=== PATIENT | male | born 1955 | race Caucasian/White ===

== ENCOUNTER 2024-03-08 06:45 | Day surgery (SDC) | payer MEDICARE, OTHER, SELFPAY ==
[2024-02-18 11:04] VITALS: BMI 32.9
--- NOTE | 2024-03-08 07:17 | WPDANESEPPF ---
Anes - Initial Pre Proc Eval Procedure: Operation Date: 03/08/24 08:30 Proposed Procedures p Diagnostic Colonoscopy - Himanshu Winter MD Date/Time: 03/08/24 07:17 Surgeon: Himanshu Winter MD Pre Op Diagnosis: Other fecal abnormalities Patient Data Age: 68 Gender: M Height: 1.75 m Weight: 97.4 kg Allergies Allergy/AdvReac Type Severity Reaction Status Date / Time No Known Allergies Allergy Verified 03/08/24 07:07 Home Medications Medication Instructions Recorded Confirmed Type Vitamin C 1 tab-cap PO DIRECTED 03/01/24 03/01/24 History Vitamin D3 1 tab-cap PO DIRECTED 03/01/24 03/01/24 History clonidine HCl 0.1 mg tablet 0.1 mg PO DIRECTED 03/01/24 03/01/24 History furosemide 40 mg tablet 40 mg PO DIRECTED 03/01/24 03/01/24 History losartan 100 mg tablet 100 mg PO DAILY 03/01/24 03/01/24 History metoprolol succinate 200 mg 200 mg PO DIRECTED 03/01/24 03/01/24 History tablet,extended release 24 hr omeprazole 20 mg capsule,delayed 20 mg PO DIRECTED 03/01/24 03/01/24 History release rosuvastatin 10 mg tablet 10 mg PO DIRECTED 03/01/24 03/01/24 History Patient hx anesthesia problems: none Family hx anesthesia problems: none Results Review: All pre-operative results and documents have been reviewed as part of the pre-operative evaluation. [facility] Social History Social History Smoking status: Former smoker Alcohol intake: current Drinks per week: 24 Alcohol use details: sometimes 6 per day Substance use type: does not use Anes - Eval Final PreProcedure Day of Procedure 03/08/24 07:17 Patient weight: obese Heart: regular rate and rhythm Lungs: clear to auscultation Airway: Mallampati scale class II Neurological: alert and oriented Last oral intake: >/= 8 hours ASA classification: III Emergent: no Anesthetic plan: proceed Results Review: All pre-operative results and documents have been reviewed as part of the pre-operative evaluation. Informed Consent: The patient's anesthetic plan and its attendant risks and benefits were discussed with the patient/family/POA. Questions were solicited and answers provided to the satisfaction of the patient/family/POA.
[2024-03-08 07:21] VITALS: BP 150/114; PULSE 76; TEMP 36.8; O2SAT 97; BMI 31.3
[2024-03-08] MEDS: LACTATED RINGERS 1,000 ML 150 ML IV CONT (07:32)
[2024-03-08 07:38] VITALS: BP 172/87
--- NOTE | 2024-03-08 08:26 | P.HP_ITS ---
History of Present Illness History of Present Illness Consent: Risks, benefits, and alternatives have been discussed and questions answered. Patient agrees to proceed with procedure. Chief complaint: Positive Cologuard Narrative: Esdras Wheeler is a 68 year old male presents for screening colonoscopy. Patient's current weight appetite and bowel movements are normal. He denies abdominal pain. Patient has had no bleeding. Family history noncontributory. Recent Cologuard test was found to be positive. For this reason colonoscopy arranged today. Review of Systems Review of Systems: All systems reviewed & are unremarkable except as noted in HPI and below PMFSH Social History Social History Smoking status: Former smoker Alcohol intake: current Drinks per week: 24 Alcohol use details: sometimes 6 per day Substance use type: does not use Meds Home Medications and Allergies Home Medications Medication Instructions Recorded Confirmed Type Vitamin C 1 tab-cap PO DIRECTED 03/01/24 03/01/24 History Vitamin D3 1 tab-cap PO DIRECTED 03/01/24 03/01/24 History clonidine HCl 0.1 mg tablet 0.1 mg PO DIRECTED 03/01/24 03/01/24 History furosemide 40 mg tablet 40 mg PO DIRECTED 03/01/24 03/01/24 History losartan 100 mg tablet 100 mg PO DAILY 03/01/24 03/01/24 History metoprolol succinate 200 mg 200 mg PO DIRECTED 03/01/24 03/08/24 History tablet,extended release 24 hr omeprazole 20 mg capsule,delayed 20 mg PO DIRECTED 03/01/24 03/01/24 History release rosuvastatin 10 mg tablet 10 mg PO DIRECTED 03/01/24 03/01/24 History Allergies Allergy/AdvReac Type Severity Reaction Status Date / Time No Known Allergies Allergy Verified 03/08/24 07:07 Vital Signs Vital Signs - 24 hr 03/08/24 07:21 03/08/24 07:38 Temperature 98.2 F Pulse Rate 76 Blood Pressure 150/114 H 172/87 H Pulse Oximetry 97 Oxygen Delivery Room Air Exam Narrative: Physical exam reveals patient to be alert. Vital signs stable. HEENT is unremarkable. Patient is anicteric. Lungs are clear to auscultation and to percussion. Heart is without murmur or extra sounds. Abdomen bowel sounds are present soft nontender with no organomegaly. Digital external rectal exam normal. Assessment and Plan Assessment and plan (1) Encounter for colorectal cancer screening using Cologuard test: Code(s): Z12.11 - Encounter for screening for malignant neoplasm of colon; Z12.12 - Encounter for screening for malignant neoplasm of rectum Status: Acute Assessment and Plan: Presents for screening colonoscopy. Recent Cologuard test was found to be po sitive.
[2024-03-08 09:02] VITALS: BP 119/73; PULSE 79; RESP 16; O2SAT 98
[2024-03-08 09:12] VITALS: BP 126/73; PULSE 82; RESP 18; O2SAT 98
[2024-03-08 09:22] VITALS: BP 131/76; PULSE 70; RESP 18; O2SAT 97
--- NOTE | 2024-03-08 09:38 | SUR.PHASEII ---
5118; PT WAITING FOR RIDE HOME
--- NOTE | 2024-03-08 10:20 | WPDANESPN ---
Anes - Prog Note Post-Op Date/Time: 03/08/24 10:20 Cardiovascular status: normal Respiratory status: normal Airway patency: baseline Mental status: baseline Post-Op hydration status: normal Vital Signs: Last Vital Signs Temp 36.8 C 03/08/24 07:21 Pulse 70 03/08/24 09:22 Resp 18 03/08/24 09:22 BP 131/76 03/08/24 09:22 Pulse Ox 97 03/08/24 09:22 O2 Del Method Room Air 03/08/24 09:22 Pain Score (VAS): 0/10 I/O: Intake & Output 03/07/24 03/08/24 03/08/24 23:59 07:59 15:59 Intake Total 600 Balance 600 Patient Feedback: Patient satisfied with anesthetic care.
== END 2024-03-08 09:41 | disposition home or self-care (01) ==
PROVIDERS: PCP Family Medicine; Visit Provider Internal Medicine Gastroenterology
PROC: 0DJD8ZZ Inspection of Lower Intestinal Tract, Via Natural or Artificial Opening Endoscopic (ICD-10-PCS; CPT 45378; principal; 2024-03-08 08:30)
DX: R19.5 Other fecal abnormalities (principal); D12.5 Benign neoplasm of sigmoid colon; K57.30 Diverticulosis of large intestine without perforation or abscess without bleeding
CPT/HCPCS: 45385

== ENCOUNTER 2024-03-08 07:00 | Outpatient (NON) | payer MEDICARE, OTHER, SELFPAY | END 2024-03-08 07:01 | disposition home or self-care (01) | LOC: ANHLAB 03-09 08:45 | PROVIDERS: PCP Family Medicine; Visit Provider Internal Medicine Gastroenterology | DX: Z12.11 Encounter for screening for malignant neoplasm of colon (principal); Z12.12 Encounter for screening for malignant neoplasm of rectum; D12.5 Benign neoplasm of sigmoid colon | CPT/HCPCS: 88305 ==